=== PATIENT | female | born 1955 | race Caucasian/White ===

== ENCOUNTER 2017-01-12 08:57 | Outpatient (CLI) | payer OTHER ==
[2017-01-12 09:48] LABS: #Basophils 0.1 thou/uL (0.0-0.2); #Eosinphils 0.2 thou/uL (0.0-0.7); #Lymphocytes 1.5 thou/uL (1.20-3.40); #Monocytes 0.6 thou/uL (0.11-0.59); #Neutrophils 4.3 thou/uL (1.40-6.50); %Basophils 1.1 % (0.0-1.0); %Eosinophils 2.3 % (0.0-10.0); %Monocytes 8.8 % (0.0-10.0); Mean Platelet Volume 6.1 fL (7.4-10.4); Red Blood Cell (RBC) Count 5.22 mill/uL (4.20-5.40); White Blood Cell (WBC) Count 6.5 thou/uL (4.8-10.8)
[2017-01-12 10:20] LABS: ALT (SGPT) 19 U/L (0-55); AST (SGOT) 21 U/L (5-34); Alkaline Phosphatase 73 U/L (40-150); Anion Gap 14 mmol/L (10-20); BUN (Urea Nitrogen) 14 mg/dL (9.8-20.1); Bilirubin, Total 1.4 mg/dL (0.2-1.2); Calc. Creatinine Clearance 0 mL/min (70-130); Calcium 9.7 mg/dL (7.8-10.44); Carbon Dioxide 30 mmol/L (22-29); Chloride 104 mmol/L (98-107); Estimated GFR-MDRD 74; LDL Cholesterol, Calculated 98 mg/dL; Protein, Total 7.2 g/dL (6.0-8.3)
[2017-01-12 10:43] LABS: Hemoglobin A1c 5.5 % (4.0-6.0)
[2017-01-12 18:31] LABS: Microalbumin Urine Less than 1.0 mg/dL (0.5-50.0)
[2017-01-12 18:39] LABS: Iron 111 ug/dL (50-170)
== END 2017-01-12 08:58 | disposition home or self-care (01) ==
LOC: BURLAB 08:57
PROVIDERS: ATTEND Family Medicine
DX: E03.9 Hypothyroidism, unspecified (principal); D64.9 Anemia, unspecified; E11.9 Type 2 diabetes mellitus without complications; Z98.84 Bariatric surgery status
CPT/HCPCS: 36415; 80053; 80061; 82043; 82306; 82607; 82746; 83036; 83540; 84443; 85025

== ENCOUNTER 2017-06-18 16:52 | Emergency (ER) | payer OTHER ==
--- NOTE | 2017-06-18 18:13 | RAD ---
CHEST TWO VIEWS: Date: 06-18-17 Comparison: CT thoracic spine performed concurrently. FINDINGS: The heart is normal in size. There is no mediastinal widening or shift. The lungs are clear and full y inflated. No infiltrate, effusion or pneumothorax was seen. No bony fracture were appreciated. There may be calcification along side the right shoulder that could be from calcific tendinitis. IMPRESSION: No acute thoracic finding. POS: HOME
--- NOTE | 2017-06-18 18:19 | CT ---
CT OF THE THORACIC SPINE: Date: 06-18-17 FINDINGS: Spiral CT of the thoracic spine was performed following a fall. Axial slices were acquired and then coronal and sagittal reconstructions were done. No fracture or dislocation was seen at any thoracic level. There was no area of bony destruction. Ex tensive degenerative changes are present throughout the entire thoracic spine. The paravertebral sof t tissues are not thickened. An incidental finding of a 4 mm noncalcified nodule in the apex of the left upper lobe. The patient does have calcified nodes in the left hilum. The odds are highest that this just a noncalcified gran uloma. Strictly speaking, follow up in one year would be recommended unless there was a history of c ancer or other reasons to be more suspicious. The visible portions of the lungs are clear. No pneumo thorax or pleural effusion was seen. IMPRESSION: 1. No acute thoracic spine findings. 2. Extensive degenerative changes. 3. 4 mm noncalcified nodule, apex of left upper lobe. One year follow up recommended. Findings discussed with ordering physician at 1744 on 06-18-17. Code LN POS: HOME
== END 2017-06-18 17:58 | disposition home or self-care (01) ==
LOC: BURERS 16:52
DX: M54.6 Pain in thoracic spine (principal); E11.9 Type 2 diabetes mellitus without complications; K21.9 Gastro-esophageal reflux disease without esophagitis; K57.92 Diverticulitis of intestine, part unspecified, without perforation or abscess without bleeding; D64.9 Anemia, unspecified; E78.5 Hyperlipidemia, unspecified; F32.9 Major depressive disorder, single episode, unspecified; L53.9 Erythematous condition, unspecified
CPT/HCPCS: 71020; 72128

== ENCOUNTER 2020-09-18 19:52 | Emergency (ER) | payer OTHER ==
[~2020-09-18 19:52] MED LIST: Iopamidol 370 76% 100 ML VIAL ONE
[2020-09-18] MEDS ORDERED: Fentanyl 100 MCG/2 ML VIAL ONE (20:21)
[2020-09-18] MEDS ORDERED: Ondansetron PF 4 MG/2 ML Vial ONE (20:22)
[2020-09-18 20:27] LABS: #Basophils 0.1 thou/uL (0.0-0.2); #Lymphocytes 1.3 thou/uL (1.20-3.40); #Monocytes 0.8 thou/uL (0.11-0.59); #Neutrophils 15.8 thou/uL (1.40-6.50); %Basophils 0.5 % (0.0-1.0); %Eosinophils 0.3 % (0.0-10.0); %Lymphocytes 7.2 % (21.0-51.0); %Monocytes 4.3 % (0.0-10.0); %Neutrophils 87.8 % (42.0-75.0); Hemoglobin 15.7 g/dL (12.0-16.0); Mean Corpuscular HGB CONC 32.2 g/dL (32.0-36.0); Mean Corpuscular Hemoglobin 28.7 pg (27.0-31.0); Mean Corpuscular Volume 89.1 fL (78.0-98.0); Mean Platelet Volume 7.6 fL (7.4-10.4); Platelet Count 199 thou/uL (130-400); Red Blood Cell (RBC) Count 5.45 mill/uL (4.20-5.40); White Blood Cell (WBC) Count 18.1 thou/uL (4.8-10.8)
[2020-09-18 20:41] LABS: ALT (SGPT) 23 U/L (8-55); AST (SGOT) 22 U/L (5-34); Albumin 4.2 g/dL (3.4-4.8); Alkaline Phosphatase 71 U/L (40-110); Anion Gap 16 mmol/L (10-20); BUN (Urea Nitrogen) 17 mg/dL (9.8-20.1); Bilirubin, Total 1.1 mg/dL (0.2-1.2); Calc. Creatinine Clearance 0 mL/min (70-130); Calcium 9.6 mg/dL (7.8-10.44); Carbon Dioxide 28 mmol/L (23-31); Chloride 102 mmol/L (98-107); Estimated GFR-MDRD 74; Globulin 3.3 g/dL (2.4-3.5); Glucose 166 mg/dL (80-115); Lipase 25 U/L (8-78); Potassium 3.5 mmol/L (3.5-5.1); Protein, Total 7.5 g/dL (6.0-8.3); Sodium 142 mmol/L (136-145)
--- NOTE | 2020-09-18 21:24 | CT ---
CT ABDOMEN AND PELVIS WITH CONTRAST: 09/18/[address] of the abdomen and pelvis was done for evaluation of nausea, vomiting and abdominal pain. The major finding on the study is dilated loops of fluid filled small bowel. The dilation starts in t he duodenum, goes through proximal small bowel and well into the mid-small bowel. There is a transiti on point beyond which the ileum is normal in caliber, as is the colon. Some loops are just over 4 cm in width. No free air or free fluid was seen. The lung bases are clear. The liver and spleen show no acute findings. Calcified granulomas are noted in each. There has been a prior cholecystectomy. No masses of concern were seen in the adrenal gland s or kidneys. There is no renal obstruction. The aorta shows no aneurysm. CT of the pelvis showed no fluid collections, inflammatory changes, or masses. Extensive degenerative changes are present in the lumbar spine, particularly in the facet joints of the lower lumbar region . IMPRESSION: Mid-small bowel obstruction. Preliminary report discussed with Dr. Recio at [id number] on 09/18/20. POS: HOME
[2020-09-18] MEDS ORDERED: Benzocaine 20% Spray 60 ML CAN ONE (21:27)
[2020-09-18] MEDS ORDERED: Oxymetazoline HCl 0.05% (30 ML BOT) ONE (21:27)
--- NOTE | 2020-09-19 06:47 | RAD ---
AP PORTABLE CHEST: 09/18/20 2150 HOURS COMPARISON: 06/18/17 FINDINGS: The heart is normal in size and the lungs are clear. No free air is seen beneath the diaphragm. An NG tube has been inserted, the tip is in the upper stomach. IMPRESSION: No acute thoracic findings. POS: HOME
== END 2020-09-18 21:55 | disposition short-term general hospital (02) ==
LOC: BURERS 19:52
DX: K56.609 Unspecified intestinal obstruction, unspecified as to partial versus complete obstruction (principal); E11.9 Type 2 diabetes mellitus without complications; D64.9 Anemia, unspecified; E78.5 Hyperlipidemia, unspecified; E78.00 Pure hypercholesterolemia, unspecified; F32.9 Major depressive disorder, single episode, unspecified; Z79.899 Other long term (current) drug therapy
CPT/HCPCS: 36415; 71045; 74177; 80053; 82553; 83605; 83690; 84484; 85025; 93005; 96374; 96375; J2405; J3010; Q9967

== ENCOUNTER 2022-11-08 10:50 | Emergency (ER) | payer OTHER | END 2022-11-08 11:45 | disposition home or self-care (01) | LOC: BURERS 10:50 | DX: S70.01XA Contusion of right hip, initial encounter (principal); E11.9 Type 2 diabetes mellitus without complications; E78.00 Pure hypercholesterolemia, unspecified; W01.0XXA Fall on same level from slipping, tripping and stumbling without subsequent striking against object, initial encounter ==